=== PATIENT | male | born 1995 | race Caucasian/White ===

== ENCOUNTER 2020-05-31 12:23 | Emergency (ER) | payer OTHER, SELFPAY ==
--- NOTE | ~2020-05-31 | XR_ITS ---
XR chest 2V DATE: 05/31/2020 12:51 INDICATION: Cough, wheezing. Smoker. TECHNIQUE: 2 views COMPARISON: None FINDINGS: Bilateral hyperinflation. No pulmonary infiltrate or consolidation, pleural effusion or pul monary pneumothorax. Normal heart size. No hilar or mediastinal enlargement. IMPRESSION: Bilateral hyperinflation Reviewed, dictated and finalized at location A. IMPRESSION: Bilateral hyperinflation
[2020-05-31 12:30] VITALS: BP 128/74; PULSE 98; RESP 14; TEMP 36.9; O2SAT 98
--- NOTE | 2020-05-31 12:30 | ED.URI ---
HPI - URI/Sore Throat General Chief Complaint: Upper Respiratory Infection Stated Complaint: sinus infection Time Seen by Provider: 05/31/20 12:34 Source: patient Mode of arrival: ambulatory Limitations: no limitations History of Present Illness HPI Narrative: 25-year-old male presents to the [facility] with C/O cough and congestion for the last 3 days. Patient states that he is a heavy smoker. Is concerned because his dad was just diagnosed with COPD. Denies chest pain or shortness of breath. Related Data Allergies Allergy/AdvReac Type Severity Reaction Status Date / Time No Known Allergies Allergy Verified 05/31/20 12:45 Review of Systems Review of Systems: Narrative: CONSTITUTIONAL: Denies fever, chills, or sweats. EYES: Denies visual changes, redness, or discharge. ENT: Reports rhinorrhea, congestion, sore throat, or otalgia. CARDIOVASCULAR: Denies chest pain, palpitations, or edema. RESPIRATORY: Reports cough but denies dyspnea. GASTROINTESTINAL: Denies abdominal pain, nausea, vomiting, or diarrhea. MUSCULOSKELETAL: Denies back pain, joint pain, or myalgia. NEUROLOGIC: Denies headache, numbness, or weakness. PSYCHIATRIC: Denies anxiety or depression. All other systems reviewed are negative, except as documented in HPI. [facility] Social History Social History (Updated 05/31/20 @ 19:19 by Remedios Griffin) Smoking status: Current every day smoker Comments Denies significant past medical history or surgical history. My past medical Exam Narrative: Exam Narrative: GENERAL: This is a well-nourished, well-developed patient, in no apparent distress. Appears mildly ill HEAD: normocephalic, atraumatic. EYES: PERRL. Sclera clear/white. Vision is grossly intact. EARS: External ears normal, auditory canals clear and without drainage, TMs normal without perforation. Hearing grossly intact. NOSE: External nose normal with nasal discharge, nares without redness. no rhinorrhea. THROAT: Mucous membranes moist, posterior pharynx clear. NECK: Neck supple, non-tender without lymphadenopathy, masses or thyromegaly. CARDIOVASCULAR: Regular rate and rhythm without murmurs, gallops, or rubs. RESPIRATORY: Wheezing noted on auscultation. GASTROINTESTINAL: Abdomen soft, non-tender, nondistended. SKIN: warm, Dry, intact with no suspicious lesions or rash, good texture and turgor. NEURO: awake, alert, and oriented to person, place and time. There were no obvious focal neurologic abnormalities. EXTREMITIES: No joint tenderness, effusion, or edema noted. BACK: Nontender without deformity. Course Course Emergency Course: Post nebulizer treatment, patient states that he does feel better. Wheezing has decreased. Vital Signs Vital signs: Vital Signs Temperature 98.5 F 05/31/20 12:30 Pulse Rate 98 05/31/20 12:30 Respiratory Rate 14 05/31/20 12:30 Blood Pressure 128/74 05/31/20 12:30 Pulse Oximetry 98 05/31/20 12:30 Temperature 98.5 F 05/31/20 12:30 Pulse Rate 98 05/31/20 12:30 Respiratory Rate 14 05/31/20 12:30 Blood Pressure 128/74 05/31/20 12:30 Pulse Oximetry 98 05/31/20 12:30 Discharge instructions reviewed with patient, as well as provided in writing per nursing staff. The instructions also include specific and strict return/GO TO THE ER as well as f/u information. All questions have been answered, and the patient deny any further questions with discharge and discharge plan. MDM - URI/Sore Throat MDM Narrative Medical decision making narrative: Discharge instructions reviewed with patient, as well as provided in writing per nursing staff. The instructions also include specific and strict return/GO TO THE ER as well as f/u information. All questions have been answered, and the patient deny any further questions with discharge and discharge plan. Differential Diagnosis Differential diagnosis: Likely upper respiratory infection, sinusitis, viral infection, bronchitis, influenza and pharyngitis Lab
[2020-05-31] MEDS: ALBUTEROL SULFATE NEB 2.5 MG/3 ML INH INHALATION (12:54)
[2020-06-01 20:31] LABS: SARS-CoV-2 RNA PCR Negative
== END 2020-05-31 13:30 | disposition home or self-care (01) ==
PROVIDERS: Emergency Provider Nurse Practitioner
DX: J40 Bronchitis, not specified as acute or chronic (principal); Z20.822 Contact with and (suspected) exposure to COVID-19; F17.200 Nicotine dependence, unspecified, uncomplicated
CPT/HCPCS: 71046; 87426; 99213; C9803; G0463; U0003; U0005

== ENCOUNTER 2020-11-25 08:32 | Emergency (ER) | payer OTHER, SELFPAY ==
[2020-11-25 08:38] VITALS: BP 139/96; PULSE 110; RESP 16; TEMP 36.6; O2SAT 100
[2020-11-25 08:41] VITALS: RESP 14
--- NOTE | 2020-11-25 08:41 | ED.URI ---
HPI - URI/Sore Throat General Chief Complaint: Upper Respiratory Infection Stated Complaint: sinus infection Time Seen by Provider: 11/25/20 08:44 Source: patient and RN notes reviewed Mode of arrival: ambulatory Limitations: no limitations History of Present Illness HPI Narrative: 25-year-old male presents to the [facility] with complaints of a runny nose and congestion sore throat for 2 days. No treatment prior to arrival. Denies chest pain, abdominal pain, fevers, cough, nausea, vomiting or diarrhea. Related Data Home Medications Medication Instructions Recorded Confirmed No Home Medications 11/25/20 11/25/20 Allergies Allergy/AdvReac Type Severity Reaction Status Date / Time No Known Allergies Allergy Verified 11/25/20 08:44 Review of Systems Review of Systems: All systems reviewed & are unremarkable except as noted in HPI and below Constitutional: Constitutional: Reports no additional constitutional complaints, Denies chills and Denies fever(s) Eyes: Eyes: Reports no additional eye complaints ENT: Reports as per HPI and Reports nasal congestion Cardiovascular: Cardiovascular: Reports no additional cardiovascular complaints and Denies chest pain Respiratory: Respiratory: Reports no additional respiratory complaints, Denies cough and Denies dyspnea Gastrointestinal: Gastrointestinal: Reports no additional gastrointestinal complaints, Denies abdominal pain, Denies nausea and Denies vomiting Musculoskeletal: Musculoskeletal: Reports no additional musculoskeletal complaints Integumentary/Breasts: Skin/Breast: Reports system reviewed and no additional complaints, except as docu Neurologic: Reports system reviewed and no additional complaints, except as documented Psychiatric: Psychiatric: Reports no additional psychiatric complaints Allergic/Immunologic: Allergic/Immunologic: Reports no additional allergic/immunologic complaints [facility] Past Medical History Medical History (Updated 11/25/20 @ 08:53 by Remedios Griffin) No significant medical problems Surgical History Surgical History (Updated 11/25/20 @ 08:50 by Remedios Griffin) No significant past surgical history Social History Social History (Updated 11/25/20 @ 08:50 by Remedios Griffin) Smoking status: Current every day smoker Living arrangements: with family Occupation/Education: occupation Gender identity (if verbalized by the patient): Male Exam Const: General: healthy appearing, no acute distress and alert Nutritional Appearance: well nourished Orientation/consciousness: patient oriented x3 HENMT: Head: normal to inspection Ears: external ears normal, TM's normal bilaterally and EAC's normal General nose exam: Normal external nose present Eyes: Conjunctivae: conjunctivae normal Pupils: Equal, round and reactive pupils present Neck: Neck: normal visual inspection, no lymphadenopathy and no meningeal signs Chest: Chest palpation & inspection: normal inspection of the chest Resp: Effort & Inspection: normal respiratory effort, not labored, no retractions and no use of accessory muscles Auscultation: clear to auscultation bilaterally, no crackles, no rales, no rhonchi and no wheezes Cardio: Rate: tachycardic Back/Spine/Pelvis: Back: no CVA tenderness Skin: General skin exam: normal color Rashes: no rashes Wounds: no wounds Neuro: General: patient oriented x3, moves all extremities, no meningeal signs and no focal motor deficits Speech: normal speech Gait exam (Neuro): Normal gait present Extrem: General: normal to inspection Psych: Appearance: grossly normal and well kempt Mental Status: mental status grossly normal Affect: normal affect Attitude: cooperative Thought content: Yes Normal thought content present Course Course Emergency Course: Discharge instructions reviewed with patient, as well as provided in writing per nursing staff. The instructions also include specific and strict return/GO TO THE ER a
[2020-11-25 08:59] VITALS: PULSE 98
== END 2020-11-25 09:00 | disposition home or self-care (01) ==
PROVIDERS: Emergency Provider Nurse Practitioner
DX: J01.10 Acute frontal sinusitis, unspecified (principal); F17.210 Nicotine dependence, cigarettes, uncomplicated
CPT/HCPCS: 99213; G0463

== ENCOUNTER 2022-05-26 10:43 | Emergency (ER) | payer OTHER, SELFPAY ==
[2022-05-26 10:49] VITALS: BP 146/81; PULSE 105; RESP 18; TEMP 36.9; O2SAT 98
--- NOTE | 2022-05-26 11:02 | ED.URI ---
HPI - URI/Sore Throat General Chief Complaint: Upper Respiratory Infection Stated Complaint: Congestion/Cough/Headache Time Seen by Provider: 05/26/22 11:02 Source: patient, RN notes reviewed and old records reviewed Mode of arrival: ambulatory Limitations: no limitations History of Present Illness HPI Narrative: [id number] male who [facility] with cough, headache,nasal congestion, sore throat, and body aches for past 3 day duration. Patient reports that he hardy been taking Mucinex for his symptoms. He states that he has been coughing up some yellow phlegm and he has noted some wheezing. Patient denies any acute shortness of breath with SAO2 98% on room air and no tachypnea noted. Patient works in [employer] which is very bal and he also uses tobacco daily. MD elicited complaint: cough, rhinorrhea and other (headache, body aches) Onset (ago): day(s) (3) Pain scale (0-10): 6 Able to tolerate fluids by mouth: Yes Treatments prior to arrival: other (Mucinex DM) Related Data Allergies Allergy/AdvReac Type Severity Reaction Status Date / Time No Known Allergies Allergy Verified 05/26/22 10:55 Review of Systems Review of Systems: CONSTITUTIONAL: Denies malaise, chills, sweats, or fever. EYES: Denies visual changes, redness, or discharge. ENT: Reports rhinorrhea, congestion, sinus pain, no otalgia and some sore throat. CARDIOVASCULAR: Denies chest pain, palpitations, or edema. RESPIRATORY: Reports cough.? Denies dyspnea. GASTROINTESTINAL: Denies abdominal pain, nausea, vomiting, diarrhea SKIN: Denies rash or itching. MUSCULOSKELETAL:reports myalgia. NEUROLOGIC: Reports headache. All systems reviewed & are unremarkable except as noted in HPI and below PMFSH Past Medical History Medical History (Updated 05/27/22 @ 00:01 by Clau Cabral) No significant medical problems Surgical History Surgical History (Updated 11/25/20 @ 08:50 by Remedios Griffin APRN) No significant past surgical history Social History Social History (Updated 05/28/22 @ 07:33 by Tanisha Dior NP) Smoking packs per day: 0.5 Smoking cigarettes per day: 10.0 Smoking status: Current every day smoker Alcohol intake: current Alcohol use details: social Substance use type: marijuana Living arrangements: with family Occupation/Education: occupation Gender identity (if verbalized by the patient): Male Comments At time of signature, agree with nursing past medical, surgical, social and family history. There is no relevant family history pertinent to the presenting complaint Exam Narrative: GENERAL: Well-appearing, well-nourished, and in no acute distress. HEAD: Normocephalic EYES: PERRLA, conjunctivae clear ENT: Nares clear, turbinates edematous and erythematous, clear to light yellow discharge. Mucous membranes moist. TM pearly thurman with dull light reflex bilaterally; no tragal tenderness. Oropharynx erythematous without lesions. Tonsils not enlarged and without exudate, no drooling, no hoarseness, no trismus, uvula midline.post nasal discharge NECK: Supple. No lymphadenopathy CHEST: Coarse and scattered wheezing on auscultation, breath sounds equal.Positive for wheezing,no rhonchi, rales, or stridor. No respiratory distress, speaks in full sentences.SAO2 98% on room air HEART: Regular rate and rhythm. No murmur heard. SKIN: Warm, dry, no rash. NEURO: Alert and oriented x3. PSYCH: Normal mood and affect Course Course Emergency Course: Patient is aware of diagnosis, understands and agrees to treatment plan.? Anticipatory guidance given.? Patient agrees to follow-up as directed and is aware of reasons to seek care at the emergency department. Portions of this record may have been created with voice recognition software Level of Care: [facility] Visit Vital Signs Vital signs: Vital Signs Temperature 36.9 C 05/26/22 10:49 Pulse Rate 105 H 05/26/22 10:49 Respir
== END 2022-05-26 11:25 | disposition home or self-care (01) ==
PROVIDERS: Emergency Provider Registered Nurse
DX: J40 Bronchitis, not specified as acute or chronic (principal); F17.210 Nicotine dependence, cigarettes, uncomplicated
CPT/HCPCS: 99213; G0463

== ENCOUNTER 2025-02-06 14:53 | Emergency (ER) | payer OTHER, SELFPAY ==
--- OUTSIDE RECORDS SUMMARY | 2025-02-06 14:59 | XMS_ITS | Clinical Summary ---
Author Organization [facility] Address [address] [address] Phone Care Team Providers Care Residential Sales Name Role Phone Mario Gordon MD Primary Care Provider [phone] Allergies No known active allergies Medications buPROPion XL (WELLBUTRIN XL) 300 mg 24 hr tabletIndicatio ns:MOSES (generalized anxiety disorder) Take 1 tablet (300 mg total) by mouth every morning 90 tablet 3 5 11/11/19 26 Active ALPRAZolam (XANAX) 0.25 mg tabletIndicatio ns:MOSES (generalized anxiety disorder) Take 1 tablet (0.25 mg total) by mouth nightly as needed for anxiety 30 tablet 5 02/20/19 26 Active ALPRAZolam (XANAX) 0.25 mg tabletIndicatio ns:MOSES (generalized anxiety disorder) Take 1 tablet (0.25 mg total) by mouth nightly as needed for anxiety 30 tablet 5 01/22/20 25 Discontinu ed(Reorder ) Active Problems Problem Noted Date Diagnosed Date Nicotine dependence in remission 06/19/2023 Assessment & Plan (11/10/2024 9:53 AM CDT): Continues to remain nicotine free Assessment & Plan (06/19/2023 4:31 PM CDT): Continues to remain nicotine free Insomnia 09/04/2022 Assessment & Plan (11/10/2024 9:53 AM CDT): Caroline Has not taken his Mirtazipine in approx 2 weeks Assessment & Plan (10/24/2023 4:43 PM CDT): Chronic, stable Continue Mirtazapine 45 mg nightly as needed Assessment & Plan (06/19/2023 4:34 PM CDT): Chronic, stable Continue Mirtazapine 45 mg nightly as needed Assessment & Plan (03/21/2023 5:05 PM CHEMICALS DISTILLER): Stable, currently controlled Continue Mirtazapine 45 mg nightly as needed Assessment & Plan (02/20/2023 5:00 PM CHEMICALS DISTILLER): Has been having racing thoughts at night due to finding out his girlfriend is Contineu Mirtazapine 45 mg nightly as needed Assessment & Plan (11/08/2022 4:55 PM CDT): Patient states mirtazapine 30 mg is helping him somewhat sleep Increase mirtazapine to 45 mg nightly Discussed healthy sleep patterns again Follow up 1 month Assessment & Plan (09/04/2022 4:24 PM CDT): Patient states mirtazapine 15 mg is no longer helping him sleep Increase mirtazapine to 30 mg nightly Discussed healthy sleep patterns Follow up by month MOSES (generalized anxiety disorder) 07/05/2022 Assessment & Plan (11/10/2024 9:53 AM CDT): Chronic, stable Currently well controlled Continue Wellbutrin 300 mg daily and Xanax 0.25 mg nightly Orders: ALPRAZolam (XANAX) 0.25 mg tablet; Take 1 tablet (0.25 mg total) by mouth nightly as needed for anxiety buPROPion XL (WELLBUTRIN XL) 300 mg 24 hr tablet; Take 1 tablet (300 mg total) by mouth every morning Assessment & Plan (10/24/2023 4:43 PM CDT): Chronic, stable, well controlled Continue Wellbutrin 300 mg daily Has had some stress/anxiety related to his daughter Xanax 0.25 mg as needed Assessment & Plan (06/19/2023 4:40 PM CDT): Chronic, stable, well controlled Continue Wellbutrin 300 mg daily Has social anxiety; has a few big events coming up related to having his daughter Xanax 0.25 mg PRN Follow up 4 months Assessment & Plan (03/21/2023 5:06 PM CHEMICALS DISTILLER): Stable, well controlled Continue Wellbutrin 300 mg daily Follow up 3 months Assessment & Plan (02/20/2023 4:54 PM CHEMICALS DISTILLER): Has been having increased stress; found out that his girlfriend is Increase Wellbutrin 300 mg daily Follow up 4-6 weeks Assessment & Plan (01/09/2023 5:17 PM CHEMICALS DISTILLER): Caroline, has not been able to get his venlafaxine for approx. 4 weeks due to insurance Start wellbutrin 150 mg daily Follow up in 6-8 weeks. Assessment & Plan (11/08/2022 4:55 PM CDT): Stable, generally well controlled Patient states that IV afternoon/early evening he starting to get more agitated Venlafaxine 150 mg b.i.d. Follow up 4 weeks Assessment & Plan (09/27/2022 4:43 PM CDT): Stable, well-controlled Continue venlafaxine 150 mg daily Follow up in 6 weeks Assessment & Plan (09/04/2022 4:23 PM CDT): Stable, fairly well-controlled Increase venlafaxine 150 mg daily Follow up in 1 month Assessment & Plan (08/02/2022 4:47 PM CDT): Now well-controlled, patient states the Remeron has helped him sleep but does not help him through the day. Patient states his appetite has increased, as evidenced by a 7 lb weight gain. Continue Remeron 15 mg at night Start Effexor 75 mg daily Follow up in 1 month Assessment & Plan (07/05/2022 1:37 PM CDT): Not well controlled, patient reports worsening stress, anxiety; impacting ability to spend time with family, avoids large groups, has avoided dental and medical assistance Patient also has decreased appetite, eating less and sleep disturbances Encouraged patient to engage with individual counseling for CBT Will start Remeron 15 mg nightly Follow-up in 4-6 weeks to evaluate response to therapy Given poor weight gain, poor appetite and low energy; will check TSH to rule out hyperthyroidism Resolved Problems Problem Noted Date Diagnosed Date Resolved Date Encounter for smoking cessation counseling 09/04/2022 11/10/2024 Assessment & Plan (03/21/2023 5:07 PM CHEMICALS DISTILLER): Continues to be nicotine free Assessment & Plan (02/20/2023 4:53 PM CHEMICALS DISTILLER): Continues to be nicotine free Assessment & Plan (11/08/2022 4:56 PM CDT): Overall patient doing well, he is not smoked since starting Nicoderm CQ Patient states that while he is not smoked, he has been chewing nicotine approximately 3-4 times a day while at work. He had recently finished the Nicoderm CQ 7 mg patch Nicoderm CQ 7 mg patch daily times 28 days and then follow up Assessment & Plan (09/27/2022 4:43 PM CDT): Patient is doing well, he has not smoked since starting Nicoderm CQ Nicoderm CQ 14 mg x 2 weeks then Nicoderm CQ 7 mg x 2 weeks Follow-up in 6 weeks Assessment & Plan (09/04/2022 4:22 PM CDT): Nicoderm CQ 21 mg patch daily for 28 days Follow up week of September 25 Encounters Date Type Department Care Team Description 02/06/2025 Nurse Triage [facility] [address] [place] [address] Mario Gordon MD 11/11/2024 Results Follow-Up [facility] [address] [place] [address] Kiah Hoff NP Hepatitis B surface antibody (immune status) Blood, Hepatitis B Surface Antigen Blood, Hepatitis C antibody Blood, Additional followed-up results: 5 11/10/2024 10:00 AM CDT Lab [facility] [address] [place] [id number] Need for hepatitis B screening test; Encounter for hepatitis C screening test for low risk patient; Encounter for screening for lipid disorder; Encounter for annual physical exam 11/10/2024 9:30 AM CDT Office Visit [facility] [place] [address] [place] [id number] Kiah Hoff NP Encounter for annual physical exam (Primary Dx); Encounter for screening for lipid disorder; Encounter for hepatitis C screening test for low risk patient; Need for hepatitis B screening test; MOSES (generalized anxiety disorder); Primary insomnia; Cigarette nicotine dependence in remission from Last 3 Months Immunizations Immunization Administration Dates Next Due Influenza, Unspecified 10/23/2023(Deferr ed: Patient Refused),11/13/2022(Deferred: Patient Refused),11/08/2022(Deferred: Patient Refused),10/13/2021(Deferred: Patient Refused),10/13/2021(Deferred: Patient Refused) Surgical History Surgery Date Site/Laterality Comments TOOTH EXTRACTION 02/13/2012 - 02/11/2013 WISDOM TOOTH EXTRACTION 09/12/2022 - 10/12/2022 Family History Medical History Relation Name Comments COPD Father Relation Name Status Comments Father Social History Tobacco Use Types Packs/Day Years Used Date Smoking Tobacco: Former Cigarettes Q uit: 05/2022 Smokeless Tobacco: Former Chew Tobacco Cessation:Counseling Given: Not Answered Alcohol Use Standard Drinks/Week Comments No 0 (1 standard drink = 0.6 oz pur e alcohol) Humiliation, Afraid, Rape, and Kick questionnair e Answer Date Recorded Within the last year, have y ou been afraid of your partner or ex-partner? No 09/04/2022 Within the last year, have y ou been humiliated or emotionally abused in other ways by your partner or ex-partner? Yes Within the last year, have y ou been kicked, hit, slapped, or otherwise physically hurt by your partner or ex-partner? No 09/04/2022 Within the last year, have y ou been raped or forced to have any kind of sexual activity by your partner or ex-partner? No 09/04/2022 Social Connection and Isolation Panel Answer Date Recorded In a typical week, how many times do you talk on the phone with family, friends, or neighbors? More than three times a week 09/04/2022 How often do you get togethe r with friends or relatives? More than three times a week 09/04/2022 How often do you attend chur ch or amish services? Never 09/04/2022 Do you belong to any clubs o r organizations such as buddhism groups, unions, fraternal or athletic groups, or school groups? Yes 09/04/2022 How often do you attend meet ings of the clubs or organizations you belong to? Never 09/04/2022 Are you , , di vorced, , never , or living with a partner? Never 09/04/2022 AUDIT-C Answer Date Recorded Q1: How often do you have a drink containing alc ohol? 2-3 times a week 09/04/2022 Q2: How many drinks containi ng alcohol do you have on a typical day when you are drinking? 3 or 4 09/04/2022 Q3: How often do you have si x or more drinks on one occasion? Weekly 09/04/2022 Overall Financial Resource Strain (CARDIA) Answe r Date Recorded How hard is it for you to pa y for the very basics like food, housing, medical care, and heating? Not hard at all 09/04/2022 PHQ-2 Answer Date Recorded PHQ-2 Total Score (If total score is 3 or more points, staff should administer the PHQ-9) 0 11/10/2024 [facility] - Occupational Stress Questionnaire Answer Date Recorded Do you feel stress - tense, restless, nervous, or anxious, or unable to sleep at night because your mind is troubled all the time - these days? Rather much 09/04/2022 Exercise Vital Sign Answer Date Recorde d On average, how many days pe r week do you engage in moderate to strenuous exercise (like a brisk walk)? 7 days 09/04/2022 On average, how many minutes do you engage in exercise at this level? 60 min 09/04/2022 Hunger Vital Sign Answer Date Recorded Within the past 12 months, y ou worried that your food would run out before you got the money to buy more. Never true 09/05/19 23 Within the past 12 months, t he food you bought just didn't last and you didn't have money to get more. Never true 09/04/2022 PRAPARE - Transportation Answer Date Re corded In the past 12 months, has l ack of transportation kept you from medical appointments or from getting medications? No 08/13 In the past 12 months, has l ack of transportation kept you from meetings, work, or from getting things needed for daily living? No 09/04/2022 Housing Stability Vital Sign Answer Jonatan e Recorded In the last 12 months, was t here a time when you were not able to pay the mortgage or rent on time? No 09/04/2022 In the last 12 months, how many places have you lived? 1 09/04/2022 In the last 12 months, was t here a time when you did not have a steady place to sleep or slept in a care home (including now)? No 09/04/2022 Sex and Gender Information Value Date Recorded Sex Assigned at Not on file Legal Sex Male 1:34 AM CHEMICALS DISTILLER Gender Identity Not on file Sexual Orientation Not on file Last Filed Vital Signs Vital Sign Reading Time Taken Comments Blood Pressure 124/72 11/10/2024 9:32 AM CDT Pulse 78 11/10/2024 9:32 AM CDT Temperature 36.7 C (98 F) 11/10/2024 9:32 AM CDT Respiratory Rate 16 11/10/2024 9:32 AM CDT Oxygen Saturation 98% 11/10/2024 9:32 AM CDT Inhaled Oxygen Concentration - - Weight 87.1 kg (192 lb) 11/10/2024 9:32 AM CDT Height 177.8 cm (5' 10) 11/10/2024 9:32 AM CDT Body Mass Index 27.55 11/10/2024 9:32 AM CDT Plan of Treatment Health Maintenance Due Date Last Done Comments DTaP/Tdap/Td Vaccine (1 - Tdap) 2006 Varicella Vaccines (1 of 2 - 13+ 2-dose series) 01/28/2008 HPV Vaccines (1 - 3-dose SCDM series) 2022 Influenza Vaccine (#1) 2024 Depression Screening 11/10/2025 11/10/2024, 10/24/2023, 06/19/2023, Additional history exists Regular Well Visit/Exam 18-64 11/10/2025 11/10/2024 Hepatitis B Screening Completed 11/10/2024 Hepatitis C Screening Completed 11/10/2024 Pneumococcal vaccine <65 Aged Out No longer eligible based on patient's age to complete this topic Procedures Procedure Name Priority Date/Time Associated Diagnosis Comments EGFR Routine 11/10/2024 9:50 AM CDT Encounter for annual physical exam DIFFERENTIAL AUTO Routine 11/10/2024 9:5 0 AM CDT Encounter for annual physical exam CBC WITH AUTO DIFFERENTIAL Routine 11/10/2024 9:50 AM CDT Encounter for annual physical exam COMPREHENSIVE METABOLIC PANEL Routine 11/10/2024 9:50 AM CDT Encounter for annual physical exam LIPID PANEL Routine 11/10/2024 9:50 AM CDT Encounter for screening for lipid disorder HEPATITIS C ANTIBODY Routine 11/10/2024 9:50 AM CDT Encounter for hepatitis C screening test for low risk patient HEPATITIS B SURFACE ANTIGEN Routine 11/10/2024 9:50 AM CDT Need for hepatitis B screening test HEPATITIS B CORE ANTIBODY, TOTAL Routine 11/10/2024 9:50 AM CDT Need for hepatitis B screening test HEPATITIS B SURFACE ANTIBODY (IMMUNE STATUS) Routine 11/10/2024 9:50 AM CDT Need for hepatitis B screening test from Last 3 Months Results * eGFR (11/10/2024 9:50 AM CDT) eGFR 90 >=60 mL/min/1. 73 m2 Comment: Interpretive Data Reference Interval Normal >/= 90 mL/min/1.73m2 Mildly decreased* 60 - 89 mL/min/1.73m2 Mildly to moderately decreased 45 - 59 mL/min/1.73m2 Moderately to severely decreased 30 - 44 mL/min/1.73m2 Severely decreased 15 - 29 mL/min/1.73m2 Kidney Failure < 15 mL/min/1.73m2 *Relative to young adult level Estimated glomerular filtration rate is determined by the 2020 CKD-EPI equation recommended by the National Kidney Foundation (A Unifying Approach to GFR Estimation: Recommendations of the NKF-ASK Task Force on Reassessing the Inclusion of Race in Diagnosing Kidney Disease, JASN 2020). The CKD-EPI equation should not be used for patients with unstable renal function and has not been validated in children and those over 70. Current interpretive data was last reviewed 2020. Testing performed by: [facility], [address] [place] [address]., [id number] Blood 11/10/2024 9:50 AM CDT 11/10/2024 3:55 PM CDT us Kiah Hoff NP LAB BLOOD ORDERABLES Final Resul t [facility] ([place]) 1 [facility] [place] [address] * Differential, auto (11/10/2024 9:50 AM CDT) Neutrophil abs 4.20 1.50 - 6.50 K/cumm Comment:Testing performed by : [facility], [address] [place] [address]., [id number] Imm gran abs 0.02 0.00 - 0.10 K/cumm [facility] ([place]) Comment:Testing performed by : [facility], [address] [place] [address]., [id number] Lymphocyte abs 2.00 0.80 - 3.30 K/cumm [facility] ([place]) Comment:Testing performed by : [facility], [address] [place] [address]., [id number] Monocyte abs 0.58 0.20 - 0.80 K/cumm [facility] ([place]) Comment:Testing performed by : [facility], [address] [place] [address]., [id number] Eosinophil abs 0.27 0.00 - 0.50 K/cumm [facility] ([place]) Comment:Testing performed by : [facility], [address] [place] [address]., [id number] Basophil abs 0.04 0.00 - 0.10 K/cumm [facility] ([place]) Comment:Testing performed by : [facility], [address] [place] [address]., [id number] Neutrophil pct 59.0 % [facility] ([place]) Comment: Interpretive Data Percent cell count reference ranges are not reported, since discordance with absolute values may lead to misinterpretation of CBC data. Current Interpretive Data was last revised on 2017. Testing performed by: [facility], [address] [place] [address]., [id number] Imm gran pct 0.3 % [facility] ([place]) Comment: Interpretive Data Percent cell count reference ranges are not reported, since discordance with absolute values may lead to misinterpretation of CBC data. Current Interpretive Data was last revised on 2017. Testing performed by: [facility], [address] [place] [address]., [id number] Lymphocyte pct 28.1 % [facility] ([place]) Comment: Interpretive Data Percent cell count reference ranges are not reported, since discordance with absolute values may lead to misinterpretation of CBC data. Current Interpretive Data was last revised on 2017. Testing performed by: [facility], [address] [place] [address]., [id number] Monocyte pct 8.2 % [facility] ([place]) Comment: Interpretive Data Percent cell count reference ranges are not reported, since discordance with absolute values may lead to misinterpretation of CBC data. Current Interpretive Data was last revised on 2017. Testing performed by: [facility], [address] [place] [address]., [id number] Eosinophil pct 3.8 % [facility] ([place]) Comment: Interpretive Data Percent cell count reference ranges are not reported, since discordance with absolute values may lead to misinterpretation of CBC data. Current Interpretive Data was last revised on 2017. Testing performed by: [address] [address] Basophil pct 0.6 % [facility] ([place]) Comment: Interpretive Data Percent cell count reference ranges are not reported, since discordance with absolute values may lead to misinterpretation of CBC data. Current Interpretive Data was last revised on 2017. Testing performed by: [address], [id number] Blood 11/10/2024 9:50 AM CDT 11/10/2024 3:21 PM CDT Kiah Hoff NP LAB BLOOD ORDERABLES Final Resul t [facility] ([place]) 1 [facility] [place] [address] * CBC with auto differential (11/10/2024 9:50 AM CDT) WBC 7.11 3.80 - 9.90 K/cumm Comment:Testing performed by : [address] [address] Hgb 15.8 13.0 - 17.5 g/dL [facility] ([place]) Comment:Testing performed by : [address], [address] Hct 47.7 38.9 - 50.3 % [facility] ([place]) Comment:Testing performed by : [address] [address] Plt 329 150 - 400 K/cumm [facility] ([place]) Comment:Testing performed by : [address], [id number] MPV 10.0 9.1 - 12.3 fL [facility] ([place]) Comment:Testing performed by : [address], [address] RBC 5.27 4.30 - 5.80 M/cumm [facility] ([place]) Comment:Testing performed by : [facility], [address] [place] [address], [address] MCV 90.5 81.3 - 96.4 fL [facility] ([place]) Comment:Testing performed by : [facility], [address] [place] [address], [address] MCH 30.0 27.1 - 33.3 pg [facility] ([place]) Comment:Testing performed by : [facility], [address] [place] [address], [address] MCHC 33.1 32.3 - 35.7 g/dL [facility] ([place]) Comment:Testing performed by : [facility], [address] [place] [address], [id number] RDW CV 13.4 11.1 - 14.9 % [facility] ([place]) Comment:Testing performed by : [facility], [address] [place] [address], [address] RDW SD 44.9 35.7 - 48.1 fL [facility] ([place]) Comment:Testing performed by : [facility], [address] [place] [address], [id number] NRBC abs 0.00 0.00 - 0.01 K/cumm [facility] ([place]) Comment:Testing performed by : [address], [id number] Blood 11/10/2024 9:50 AM CDT 11/10/2024 3:21 PM CDT Kiah Hoff NP LAB BLOOD ORDERABLES Final Resul t [facility] ([place]) 1 [facility] [place] [address] * Hepatitis C antibody Blood (11/10/2024 9:50 AM CDT) Hep C Ab Nonreactive Nonreactive Comment: Interpretive Data Nonreactive: Antibodies to HCV not detected. Does NOT exclude the possibility of recent exposure to HCV. Equivocal: Equivocal for HCV antibodies. Supplemental molecular testing will be automatically performed to determine infection status in accordance with current CDC screening recommendations. Reactive: Positive for HCV antibodies. This may represent current or past HCV infection. Supplemental molecular testing will be automatically performed to determine current infection status in accordance with current CDC screening recommendations. Interpretive data was last revised on 2019. Testing performed by: [facility], [address] [place] [address]., [id number] Blood 11/10/2024 9:50 AM CDT 11/10/2024 3:21 PM CDT Kiah Hoff TENTER [facility]EDER LAB MICROBIOLOGY - GENERAL ORDER TANK Final Result Performing Organization Address City/[facility]/ZIP Co de Phone Number [facility] ([place]) [address] [place] [address] * Hepatitis B core antibody, total Blood (11/10/2024 9:50 AM CDT) Hep B core IgG/IgM Nonreactive Nonreactive Comment:Testing performed by : [facility], [address] [place] [address]., [id number] Blood 11/10/2024 9:50 AM CDT 11/11/2024 10:31 AM CDT Kiah Hoff NP LAB MICROBIOLOGY - GENERAL ORDER TANK Final Result Performing Organization Address City/[facility] Co de Phone Number [facility] ([place]) [address] [place] [address] * Hepatitis B surface antibody (immune status) Blood (11/10/2024 9:50 AM CDT) HBsAb (immune status) Nonreactive Comment: Interpretive Data Nonreactive: This result is consistent with a lack of immunity to Hepatitis B Virus when used in the setting of routine screening. Equivocal: The immune status of the individual should be further assessed, if appropriate, after consideration of clinical status, risk factors, and additional diagnostic information. Reactive: This result is consistent with immunity to Hepatitis B Virus when used in the setting of routine screening. Current interpretive data was last revised on 19. Testing performed by: [facility], [address] [place] [address]., [id number] Blood 11/10/2024 9:50 AM CDT 11/10/2024 3:21 PM CDT Kiha Hoff NP LAB MICROBIOLOGY - GENERAL ORDER TANK Final Result [facility] ([place]) 1 [facility] [employer] [place] [address] * Hepatitis B Surface Antigen Blood (11/10/2024 9:50 AM CDT) HepBsAg Nonreactive Nonreactive Comment:Testing performed by : [facility], [address] [place] [address], [id number] Blood 11/10/2024 9:50 AM CDT 11/10/2024 3:21 PM CDT Kiah Hoff NP LAB MICROBIOLOGY - GENERAL ORDER TANK Final Result Performing Organization Address City/[facility] Co de Phone Number [facility] ([place]) 1 [facility] [employer] [place] [address] * (ABNORMAL) Lipid panel (11/10/2024 9:50 AM CDT) Cholesterol 199 30 - 199 mg/dL Comment: Interpretive Data Ages < or = 19 years Acceptable: <170 mg/dL Borderline high: 170-199 mg/dL High: >or= 200 mg/dL Ages > or = 20 years Desirable: <200 mg/dL Borderline high: 200-239 mg/dL High: >or= 240 mg/dL Literature References: 1. Expert Panel on Integrated Guidelines for Cardiovascular Health and Risk Reduction in Children and Adolescents. Pediatrics 2011;128:S213 2. NCEP Expert Panel. Circulation 2004;110:227 Current Interpretive Data was last revised on 2017. Testing performed by: [facility], [address] [place] [address], [id number] Triglycerides 189(H) <=149 mg/dL [facility] ([place]) Comment: Interpretive Data Ages < or = 9 years Acceptable: <75 mg/dL Borderline high: 75-99 mg/dL High: >or= 100 mg/dL Ages 10 to 20 years Acceptable: <90 mg/dL Borderline high: 90-129 mg/dL High: >or= 130 mg/dL Ages > or = 20 years Desirable: <150 mg/dL Borderline high: 150-199 mg/dL High: 200-499 mg/dL Very high: >or= 499 mg/dL Literature References: 1. Expert Panel on Integrated Guidelines for Cardiovascular Health and Risk Reduction in Children and Adolescents. Pediatrics 2011;128:S213 2. NCEP Expert Panel. Circulation 2004;110:227 Current Interpretive Data was last revised on 2017. Testing performed by: [facility], [address] [place] [address]., [id number] HDL 47 >=40 mg/dL [facility] ([place]) Comment: Interpretive Data Ages < or = 19 years Acceptable: >45 mg/dL Borderline low: 40-45 mg/dL Low: <40 mg/dL Ages > or = 20 years Desirable: >or= 60 mg/dL Low: <40 mg/dL Literature References: 1. Expert Panel on Integrated Guidelines for Cardiovascular Health and Risk Reduction in Children and Adolescents. Pediatrics 2011;128:S213 2. NCEP Expert Panel. Circulation 2004;110:227 Current Interpretive Data was last revised on 2017. Testing performed by: [facility], [address] [place] [address]., [address] LDL, calculated 119 <=129 mg/dL BITA MORA ([place]UR[place]) Comment: Interpretive Data Ages < or = 19 years Acceptable: <110 mg/dL Borderline high: 110-129 mg/dL High: >or= 130 mg/dL Ages > or = 20 years Optimal: <100 mg/dL Near optimal: 100-129 mg/dL Borderline high: 130-159 mg/dL High: >160 mg/dL Calculated using the Bala LDL-C estimating equation. This equation was implemented on 2023. Prior to this date LDL-C was estimated using the Friedewald equation. Literature References: 1. Expert Panel on Integrated Guidelines for Cardiovascular Health and Risk Reduction in Children and Adolescents. Pediatrics 2011;128:S213 2. NCEP Expert Panel. Circulation 2004;110:227 3. Bala Cali et al. ANDRESSA Cardiol. 2020 June 12;5(5):540-548. doi: 10.1001/jamacardio.2020.0013 Current Interpretive Data was last revised on 2023. Testing performed by: [facility], [address] [place] [address]., [address] Non-HDL Cholesterol 152 mg/dL BITA MORA ([place]UR[place]) Comment: Interpretive Data Ages < or = 19 years Acceptable: <120 mg/dL Borderline high: 120-144 mg/dL High: >145 mg/dL Ages > or = 20 years When triglycerides are >200 mg/dL, Non-HDL cholesterol is a secondary target of therapy with treatment goals that are 30 mg/dL greater than the LDL cholesterol target. Literature References: 1. Expert Panel on Integrated Guidelines for Cardiovascular Health and Risk Reduction in Children and Adolescents. Pediatrics 2011;128:S213 2. NCEP Expert Panel. Circulation 2004;110:227 Current Interpretive Data was last revised on 2017. Testing performed by: [address] [address] Chol/HDL ratio 4 ANNEMARIENE R MORGAN (LAURENT) Comment:Testing performed by : [address] [address] Blood 11/10/2024 9:50 AM CDT 11/10/2024 3:21 PM CDT us Kiah Hoff NP LAB BLOOD ORDERABLES Final Resul t BITA MORA ([place]UR[place]) 1 [facility] Department [place] [address] * Comprehensive metabolic panel (11/10/2024 9:50 AM CDT) Sodium 141 135 - 145 mmol/L Comment:Testing performed by : [address] [address] Potassium, pl 4.2 3.3 - 4.9 mmol/L BITA MORA ([place]UR[place]) Comment:Testing performed by : [address] [address] Chloride 108 97 - 110 mmol/L BITA MORA ([place]UR[place]) Comment:Testing performed by : [address] [address] CO2 22 22 - 32 mmol/L [facility] ([place]) Comment:Testing performed by : [address] [address] Anion gap 11 2 - 15 mmol/L [facility] ([place]) Comment:Testing performed by : [facility], [address] [place] [address]., [address] BUN 14 6 - 25 mg/dL [facility] ([place]) Comment:Testing performed by : [address], [address] Creatinine 1.13 0.80 - 1.30 mg/dL [facility] ([place]) Comment:Testing performed by : [address], [address] Glucose 104 70 - 199 mg/dL [facility] ([place]) Comment: Interpretive Data Fasting glucose >/= 126 mg/dl is diagnostic for diabetes. Fasting is defined as no caloric intake for at least 8 hours. Fasting glucose between 100 mg/dl to 125 mg/dl is diagnostic of prediabetes. In a patient with classic symptoms of hyperglycemia or hyperglycemic crisis, a random glucose >/= 200 mg/dl is diagnostic for diabetes. In the absence of unequivocal hyperglycemia, results should be confirmed by repeat testing. The classification and Diagnosis of Diabetes Diabetes Care 202; 46: S19-S40. Current interpretive data was last revised 2022. Testing performed by: [address] [address] Calcium 9.2 8.5 - 10.3 mg/dL [facility] ([place]) Comment:Testing performed by : [address], [address] Bilirubin, total 0.2 0.1 - 1.2 mg/dL [facility] ([place]) Comment:Testing performed by : [address] [address] Protein, pl 7.5 6.5 - 8.5 g/dL [facility] ([place]) Comment:Testing performed by : [address], [address] Albumin 4.6 3.5 - 5.0 g/dL [facility] ([place]) Comment:Testing performed by : [address] [place]., [address] Alk phos 63 40 - 130 Units/L [facility] ([place]) Comment:Testing performed by : [facility], [address] [place] [address]., [address] ALT 19 7 - 55 Units/L [facility] ([place]) Comment:Testing performed by : [facility], [address] [place] [address], [address] AST 27 10 - 50 Units/L [facility] ([place]) Comment:Testing performed by : [facility], [address] [place] [address], [address] Blood 11/10/2024 9:50 AM CDT 11/10/2024 3:21 PM CDT us Kiah Hoff NP LAB BLOOD ORDERABLES Final Resul t Performing Organization Address City/State/[facility] Co de Phone Number [facility] ([place]) 1 [facility] Department [place] [address] from Last 3 Months Insurance CHOICE PLUS [facility] CHOICE PLUS Care Teams Residential Sales Relationship Specialty Start Date End Date Mario Gordon MD [address] [place] [address] PCP - General Family Medicine 07/05/22
--- OUTSIDE RECORDS SUMMARY | 2025-02-06 14:59 | XMS_ITS | Patient Health Record ---
Author Organization [facility] Address [address] [facility] [address] [facility] [address] [place] [address] Care Team Providers Care Chaplain Resident Name Role Phone Johnnie Singh Unavailable [phone] Reason For Referral No Information Plan Of Treatment No Information
--- OUTSIDE RECORDS SUMMARY | 2025-02-06 14:59 | XMS_ITS | Clinical Summary ---
Author Organization [facility] Address [address] [place] [address] Phone Care Team Providers Care Swiss Type Screw Machine Operator Name Role Phone Provider, None Primary Care Provider Unavailabl e Allergies No known active allergies Medications traMADol (ULTRAM) 50 MG Tablet Take 1 Tab by mouth every 6 hours as needed for Moderate or more severe pain. 10 Tab 08/23/2019 Active Immunizations Immunization Administration Dates Next Due TDAP Vaccine 08/23/2019() Social History Tobacco Use Types Packs/Day Years Used Date Smoking Tobacco: Every Day Cigarettes Smokeless Tobacco: Never Alcohol Use Standard Drinks/Week Comments Yes 0 (1 standard drink = 0.6 oz pur e alcohol) occasionally Sex and Gender Information Value Date Recorded Sex Assigned at Not on file Legal Sex Male 12:36 PM CDT Gender Identity Not on file Sexual Orientation Not on file Last Filed Vital Signs Vital Sign Reading Time Taken Comments Blood Pressure 146/88 08/23/2019 12:43 PM CDT Pulse 103 08/23/2019 12:43 PM CDT Temperature 37.1 C (98.7 F) 08/23/2019 12:43 PM CDT Respiratory Rate 16 08/23/2019 12:43 PM CDT Oxygen Saturation 98% 08/23/2019 12:43 PM CDT Inhaled Oxygen Concentration - - Weight 88.5 kg (195 lb) 08/23/2019 12:43 PM CDT Height 182.9 cm (6') 08/23/2019 12:43 PM CDT Body Mass Index 26.45 08/23/2019 12:43 PM CDT Plan of Treatment Health Maintenance Due Date Last Done Comments Hepatitis C Virus (HCV) Screening 1995 TdaP Immunization 1995 Hepatitis B Immunization (1 of 3 - 19+ 3-dose series) 2014 Human Papillomavirus (HPV) Immunization (1 - 3-dose SCDM series) 2022 Influenza Immunization (#1) 2024 SARS-COV-2 Immunization ( season) 2024 Respiratory Syncytial Virus (RSV) Immunization (Adult) (1 - 1-dose 75+ series) 2070 Meningococcal Immunization (ACWY) Aged Out No longer eligible based on patient's age to complete this topic Pneumococcal Immunization Combined Aged Out No longer eligible based on patient's age to complete this topic Rotavirus Immunization Aged Out No lo nger eligible based on patient's age to complete this topic [place] [address] [place] [id number] Care Teams Swiss Type Screw Machine Operator Relationship Specialty Start Date End Date Provider, None [place] PCP - General 08/23/19
--- OUTSIDE RECORDS SUMMARY | 2025-02-06 14:59 | XMS_ITS | Encounter Summary ---
Author Organization [facility] Address [address] [place] [address] Care Team Providers Care Attic Blower Name Role Phone Mario Gordon MD Primary Care Provider [phone] Reason for Visit * Reason Onset Date Comments Dental Pain 02/06/2025 Encounter Details Date Type Department Care Team ([facility] Contact Info) Description 02/06/2025 Nurse Triage [facility] [address] [place] [address] Mario Gordon MD [address] [place] [address] Social History Tobacco Use Types Packs/Day Years Used Date Smoking Tobacco: Former Cigarettes Q uit: 05/2022 Smokeless Tobacco: Former Chew Alcohol Use Standard Drinks/Week Comments No 0 [...] often do you attend chur ch or yarsani services? Never 09/04/2022 Do you belong to any clubs o r organizations such as mormon groups, unions, fraternal or athletic groups, or [...] staff should administer the PHQ-9) 0 [facility] Occupational Stress Questionnaire Answer Date Recorded [...] place to sleep or slept in a long-term (including now)? No 09/04/2022 Sex and Gender Information Value Date Recorded Sex Assigned at Not on file Legal Sex Male 1:34 AM DUE DILIGENCE COORDINATOR Gender Identity Not on file Sexual Orientation Not on file documented as of this encounter Miscellaneous Notes * Telephone Encounter - Debby Hernandez RN - 02/06/2025 12:59 PM DUE DILIGENCE COORDINATOR Reason for Conversation Dental Pain (/) Background Wero Inman reports toothache on the left lower molar. Patient had a crown on the tooth several months ago and has concerns for an infection. Denies fever. Reports very mild swelling to face. Reports pain as 4/10 with OTC meds but at worst is 7-8/10. Patient has called dentist but they are closed until Sunday. Disposition Call Dentist Now. Patient has virtual appt with [facility]. Patient advised to call back if developing new or worsening symptoms. Dicussed nursing care and treatment options. Patient verbalizes understanding of recommendations. Reason for Disposition Face swelling and no fever No Initial Assessment on file. No Additional Information on file. Protocols Used [id number] DILIGENCE COORDINATOR * Telephone Encounter - Debby Hernandez RN - 02/06/2025 12:47 PM DUE DILIGENCE COORDINATOR Regarding: severe pain in tooth ----- Message from Shila Cali sent at 02/06/2025 12:21 PM DUE DILIGENCE COORDINATOR ----- Symptom Based Call Chief Complaint(s): severe pain in tooth Duration: 2 days What type of symptom(s) is the patient experiencing? Red Flag. Is the patient concerned they are experiencing a medical emergency requiring an ambulance? No Additional Comments: patient has crown on tooth on bottom side stated he believes he has an infection under crown, patient requesting amoxicillin be prescribed Does message need to be routed? Yes-Action Needed DILIGENCE COORDINATOR documented in this encounter Plan of Treatment Not on file documented as of this encounter Visit Diagnoses Not on filedocumented in this encounter Care Teams Attic Blower Relationship Specialty Start Date End Date Mario Gordon MD [address] [place] [address] PCP - General Family Medicine 07/05/22 documented as of this encounter
[2025-02-06 15:09] VITALS: BP 173/96; PULSE 83; RESP 20; TEMP 36.6; O2SAT 100
--- NOTE | 2025-02-06 15:33 | ED.DENTAL ---
HPI - Dental/Oral General Chief complaint: Dental/Oral Stated complaint: Tooth Pain Time Seen by Provider: 02/06/25 14:57 Source: patient Mode of arrival: ambulatory Limitations: no limitations History of Present Illness HPI Narrative: Wero is a 30-year-old male patient presenting to the clinic today with complaints of left lower posterior molar dental pain. He reports this has been going on for 1-2 days. Is concerned that he may have an infection. Denies any fevers, chills, body aches. Has not followed up with a dentist Related Data Home Medications ?Medication ?Instructions ?Recorded ?Confirmed ?Last Taken ?Type alprazolam 0.25 mg tablet mg 02/06/25 Unknown History bupropion HCl 300 mg 24 hr tablet, mg PO 02/06/25 Unknown History extended release Allergies Allergy/AdvReac Type Severity Reaction Status Date / Time No Known Allergies Allergy Verified 02/06/25 15:09 Review of Systems Review of Systems: Pertinent positives per HPI. Patient denies any fever, chills, rash, headache, visual changes, dizziness, cough, runny nose, sore throat, shortness of breath, chest pain, palpitations, nausea, vomiting, diarrhea, constipation, abdominal pain, or any urinary issues. COUNT INCLUDES THE [facility] Past Medical History Medical History (Updated 02/06/25 @ 15:36 by Paco Galaviz APRN) No significant medical problems Surgical History Surgical History No significant past surgical history Social History Social History Smoking packs per day: 0.5 Smoking cigarettes per day: 10.0 Smoking status: Current every day smoker Alcohol intake: current Alcohol use details: social Substance use type: marijuana Living arrangements: with family Occupation/Education: occupation Gender identity (if verbalized by the patient): Male Comments At the time of my signature, I reviewed and agree with the nursing past medical, surgical, social, and family history. There is no relevant family history pertinent to the patient complaint. Exam Narrative: General: Well-developed, well nourished, in no apparent distress Head: Normocephalic, atraumatic Eyes: Pupils equally round and reactive to light bilaterally, EOM intact, sclera and conjunctive clear, no discharge, lids normal Ears: TMs intact and clear, ear canals clear, no drainage, grossly hearing normal. Nose: Nares patent, no discharge, no inflammation, no sinus tenderness. Mouth: Oropharynx without lesions or masses, poor dentition, MMM. Dental pain to left lower posterior molar with gingival swelling, no palpable abscess or drainage. Neck: Supple, trachea midline, no enlargement of anterior or posterior cervical nodes, no thyroid masses or goiter palpable. Cardio: Regular rate and rhythm, s1 and s2 normal, no murmur appreciated. Resp: Clear to auscultation bilaterally anteriorly and posteriorly, no rhonchi, rales, wheezing or rubs Course Course Level of Care: Express Care Visit Vital Signs Vital signs: Vital Signs Temperature 36.6 C 02/06/25 15:09 Pulse Rate 83 02/06/25 15:09 Respiratory Rate 20 02/06/25 15:09 Blood Pressure 173/96 H 02/06/25 15:09 Pulse Oximetry 100 02/06/25 15:09 Oxygen Delivery Room Air 02/06/25 15:09 Temperature 36.6 C 02/06/25 15:09 Pulse Rate 83 02/06/25 15:09 Respiratory Rate 20 02/06/25 15:09 Blood Pressure 173/96 H 02/06/25 15:09 Pulse Oximetry 100 02/06/25 15:09 Oxygen Delivery Room Air 02/06/25 15:09 [facility] Narrative Medical decision making narrative: At the time of visit patient is resting comfortably on the exam table. Patient appears to be nontoxic. Complaints of left lower posterior molar dental pain. He reports this has been going on for 1-2 days. Is concerned that he may have an infection. Denies any fevers, chills, body aches. Has not followed up with a dentist. On exam patient has dental pain to left lower posterior molar with gingival swelling, no palpable abscess or drainage. Plan: I suspect patient has toothache to the left posterior lower molar. Prescription for amoxicillin was sent to the pharmacy. Will have patient follow-up with dentist as soon as possible. Supportive measures were discussed with the patient and they voiced understanding discharge instructions and agrees to treatment plan. Return precautions reviewed Differential Diagnosis Differential Diagnosis: Differential diagnostic considerations for dental issues include gingival abscess, dental caries, toothache, dental abscess, fracture of tooth, aphthous ulcer, TMJ. Discharge Plan Discharge Clinical Impression: Toothache Patient Disposition: Home Condition: Stable Instructions: Antibiotic Form, Toothache (ED) Additional Instructions: Take medications as prescribed-amoxicillin Increase fluids and stay well hydrated May take Tylenol/Motrin as needed for pain or fever May apply Orajel to the affected area to help alleviate pain May apply warm or cool compress to the affected area to help alleviate pain Follow-up with your dentist as soon as possible Patient Language: Citizen Of [place] Prescriptions: New amoxicillin 875 mg tablet 875 mg PO Q12H 10 Days Qty: 20 0RF No Action alprazolam 0.25 mg tablet bupropion HCl 300 mg tablet extended release 24 hr PO Follow-up/Referrals: Luis Eduardo,Kiah Joseph [Primary Care Provider, Unknown] Time of Disposition: 15:36 Quality NIHSS Nursing Documentation ED NIHSS nursing documentation: reviewed/agree
== END 2025-02-06 15:42 | disposition home or self-care (01) ==
PROVIDERS: Emergency Provider Nurse Practitioner Family; PCP Nurse Practitioner
DX: K08.89 Other specified disorders of teeth and supporting structures (principal); F17.210 Nicotine dependence, cigarettes, uncomplicated
CPT/HCPCS: 99213; G0463